=== PATIENT | female | born 1960 | race Two or more races ===

== ENCOUNTER 2018-09-24 10:04 | Emergency (ER) | payer OTHER ==
[~2018-09-24] VITALS: Ht 160 cm; Wt 72.6 kg
[2018-09-24 10:31] VITALS: BP 129/69
[2018-09-24] MEDS ORDERED: FLUORESCEIN SOD 1 MG TEST STRIP OP ONE (10:45)
[2018-09-24] MEDS ORDERED: TETRACAINE HCL 0.5% OPTH(EYE) SOLN 4ML EACHEYE ONE (10:45)
== END 2018-09-24 17:28 | disposition left against medical advice (07) ==
LOC: ER 10:07
DX: H53.8 Other visual disturbances (principal); Z53.21 Procedure and treatment not carried out due to patient leaving prior to being seen by health care provider